=== PATIENT | female | born 1965 | race Caucasian/White ===

== ENCOUNTER 2016-09-27 06:15 | Inpatient (IN) | payer MEDICAID ==
--- NOTE | 2016-09-27 06:22 | ED Physician Chart ---
Chief Complaint/HPI - Patient Information Date Seen:: 09/27/16 Time Seen:: 06:18 Chief Complaint:: head pain History of Present Illness:: 50-year-old female, history of intellectual disability, complains of acute, constant, mild to moderate, aching, left temporal headache that started about 10 minutes prior to arrival to the ER she suffered a mechanical fall. Has associated laceration to the left lateral eyebrow. Also has some slight neck pain as well. Allergies:: Allergies Allergy/AdvReac Type Severity Reaction Status Date / Time azithromycin Allergy Verified 06/06/16 04:43 sea food Allergy Uncoded 06/06/16 04:43 Historian:: Patient Review:: Nurse's Note Reviewed Review of Systems - Review of Systems Other: Complete system review otherwise unremarkable except as noted in HPI. Past Medical History - Past Medical History Past Medical History: Other (intellectual disability) Family History: None Social History: Non Smoker, No Alcohol, No Drug Use, Other (lives with family) Family Medical History - Family Member Uncle History Unknown: Yes Father Other Medical History: PANCREATIC CA Physical Exam - Physical Examination Other:: INITIAL VITAL SIGNS: Reviewed by me GENERAL: Alert and interactive. No acute distress HEAD: Head is normocephalic there is a 3 cm laceration to the right lateral eyebrow area EYES: EOMI. . No scleral icterus. No conjunctival injection ENT: Moist mucous membranes. NECK: Supple. No masses. Full range of motion RESPIRATORY: No tachypnea. Clear breath sounds bilaterally. No wheezing, rales, or rhonchi CV: Regular rate and rhythm. No murmurs, rubs, or gallops ABDOMEN: Soft, non-distended, non-tender. No guarding. No rebound. No masses. EXTREMITIES: No deformity. No cyanosis. No edema. SKIN: Warm and dry. No obvious rashes. NEUROLOGIC: Alert and oriented. Face is symmetric. Speech is normal. Moves all extremities equally. Motor and sensory distally intact. ED Septic Shock - . Is Septic Shock (SBP<90, OR Lactate>4 mmol\L) present?: No Reassessment (Disposition) - Reassessment Reassessment:: Patient will be handed over to Dr. Morgan at change of shift. CT results pending. Final disposition to be determined. Reassessment Condition:: Improved - Diagnosis Diagnosis:: Closed head injury Laceration to left eyebrow Cervical strain Mechanical fall - Patient Disposition Discharge/Transfer:: Home
[2016-09-27] MEDS ORDERED: Sodium Chloride 0.9% 1,000 ML IV ONE (07:26)
[2016-09-27 08:29] LABS: % BASOPHILS 1.4 % (0.0-2.0); % EOSINOPHILS 0.8 % (0.0-5.0); % LYMPHOCYTES 16.2 % (20.0-50.0); % MONOCYTES 5.9 % (2.0-10.0); % NEUTROPHILS 75.7 % (40.0-80.0); HEMATOCRIT 40.9 % (35.0-45.0); HEMOGLOBIN 13.6 gm/dL (11.7-15.5); MEAN CELL VOLUME 89.6 fl (81-100); MEAN CORPUSCULAR HEMOGLOBIN 29.8 pg (27.0-31.0); MEAN CORPUSCULAR HGB CONC 33.2 pg (28.0-36.0); MEAN PLATELET VOLUME 8.1 fl; NEUTROPHILE ABSOLUTE 6.7 Th/cmm (1.8-8.0); PLATELET COUNT 268 Th/cmm (150-400); RED BLOOD COUNT 4.56 Mil/cmm (3.80-5.10); RED CELL DISTRIBUTION WIDTH 12.3 % (11.5-20.0); WHITE BLOOD COUNT 8.8 Th/cmm (4.8-10.8)
[2016-09-27 08:41] LABS: ALB/GLOB RATIO 1.2 (1.0-1.8); ALKALINE PHOSPHATASE 64 U/L (34-104); ANION GAP 5.9 (7.0-16.0); BILIRUBIN,TOTAL 0.4 mg/dL (0.3-1.0); BUN - UREA NITROGEN 18 mg/dL (7-25); CALCIUM SERUM 9.8 mg/dL (8.6-10.3); CARBON DIOXIDE 29.8 mEq/L (21.0-31.0); CHLORIDE 105 mEq/L (98-107); GLUCOSE 102 mg/dL (70-105); POTASSIUM SERUM 4.7 mEq/L (3.5-5.1); SGOT 16 U/L (13-39); SGPT/ALT 13 U/L (7-52); SODIUM SERUM 136 mEq/L (136-145)
--- NOTE | 2016-09-27 09:03 | Diagnostic Imaging Report ---
Head CT without intravenous contrast Indication: Trauma Comparison: Head CT on 06/05/2016 and MRI brain on 06/06/2016 Technique: Axial images were obtained from the vertex to the skull base without IV contrast. Coronal reconstructions were made. Total DLP: 588, CTDI33 FINDINGS: Images of the brain obtained without contrast demonstrate no acute hemorrhage. No mass lesions identified. The ventricles and basal cisterns are patent. The dee-white matter differentiation is preserved. There is no mass effect or midline shift. Atherosclerosis is noted. No skull fractures identified. No soft tissue swelling. The paranasal sinuses are clear. IMPRESSION: No acute intracranial abnormality. Atherosclerotic vascular disease.
--- NOTE | 2016-09-27 09:08 | Diagnostic Imaging Report ---
CT maxillofacial bones without IV contrast HISTORY: Trauma COMPARISON: Head CT the same day Technique: Axial images of the paranasal sinuses were obtained without IV contrast. Reconstructions were made. total DLP: 378, CTDI19 Findings: Images of the maxillofacial bones obtained with contrast demonstrate soft tissue injury with small pockets of gas along the right lateral orbital region. There is lucency seen along the lateral wall of the right orbit likely a nutrient vessel. A nondisplaced fracture is less likely. The bilateral orbital floors are intact. The globes and bilateral intraconal compartments are intact. There is mucosal thickening of the paranasal sinuses. No air-fluid levels identified. The bilateral TMJ joints are intact. There may have been an old nondisplaced fracture of the right zygomatic arch. There is mild rightward deviation of nasal septum. IMPRESSION: Mild soft tissue swelling and soft tissue injury with small pocket of gas along the right lateral orbital region. There is lucency seen along the lateral wall of the right orbit. This likely represents a nutrient channel. A nondisplaced fracture would be considered less likely. Possible old nondisplaced fracture of the right zygomatic arch.
--- NOTE | 2016-09-27 09:13 | Diagnostic Imaging Report ---
CT cervical spine without IV contrast HISTORY: Trauma COMPARISON: None Technique: Axial images were obtained from the skull base to the upper thoracic spine without IV contrast. Multiplanar reconstructions were made. Total DLP: 662, CTDI29 FINDINGS: Images of the cervical spine obtained without contrast demonstrate no evidence of an acute fracture or subluxation. Degenerative changes are seen greatest at C5/C6 with 4 mm posterior disc osteophyte spur asymmetric to the right at C5/C6 causing moderate spinal canal narrowing and moderate rightward neural foraminal narrowing. There is also 3 to 4 mm posterior disc osteophyte spur at C6/C7 causing mild spinal canal narrowing and mild bilateral neural foraminal narrowing. The lung apices are clear. No prevertebral soft tissue swelling. IMPRESSION: No evidence of an acute fracture or subluxation. Degenerative changes greatest at C5/C6, as detailed above.
--- NOTE | 2016-09-27 09:55 | General Progress Note ---
Subjective - Review of Systems Service Date: 09/27/16 Events since last encounter: additional notes ct cspine no fx ct face/head no bleed. poss hairline fx lateral orbit wall staff has been notified that this pt should be admitted to a telemetry bed...not a floor bed due to abnormal ecg believed to be new t inversions (no old ecg available in our system) Objective - Results Result Diagrams: 09/27/16 08:15 09/27/16 08:15 Recent Labs: Laboratory Last Values WBC 8.8 Th/cmm (4.8-10.8) 09/27/16 08:15 RBC 4.56 Mil/cmm (3.80-5.10) 09/27/16 08:15 Hgb 13.6 gm/dL (11.7-15.5) 09/27/16 08:15 Hct 40.9 % (35.0-45.0) 09/27/16 08:15 MCV 89.6 fl (81-100) 09/27/16 08:15 MCH 29.8 pg (27.0-31.0) 09/27/16 08:15 MCHC Differential 33.2 pg (28.0-36.0) 09/27/16 08:15 RDW 12.3 % (11.5-20.0) 09/27/16 08:15 Plt Count 268 Th/cmm (150-400) 09/27/16 08:15 MPV 8.1 fl 09/27/16 08:15 Neutrophils % 75.7 % (40.0-80.0) 09/27/16 08:15 Lymphocytes % 16.2 % (20.0-50.0) L 09/27/16 08:15 Monocytes % 5.9 % (2.0-10.0) 09/27/16 08:15 Eosinophils % 0.8 % (0.0-5.0) 09/27/16 08:15 Basophils % 1.4 % (0.0-2.0) 09/27/16 08:15 Sodium 136 mEq/L (136-145) 09/27/16 08:15 Potassium 4.7 mEq/L (3.5-5.1) 09/27/16 08:15 Chloride 105 mEq/L (98-107) 09/27/16 08:15 Carbon Dioxide 29.8 mEq/L (21.0-31.0) 09/27/16 08:15 Anion Gap 5.9 (7.0-16.0) L 09/27/16 08:15 BUN 18 mg/dL (7-25) 09/27/16 08:15 Creatinine 1.0 mg/dL (0.6-1.2) 09/27/16 08:15 Est GFR ( Amer) > 60.0 ml/min (>90) 09/27/16 08:15 Est GFR (Non-Af Amer) > 60.0 ml/min 09/27/16 08:15 BUN/Creatinine Ratio 18.0 09/27/16 08:15 Glucose 102 mg/dL (70-105) 09/27/16 08:15 Calcium 9.8 mg/dL (8.6-10.3) 09/27/16 08:15 Total Bilirubin 0.4 mg/dL (0.3-1.0) 09/27/16 08:15 AST 16 U/L (13-39) 09/27/16 08:15 ALT 13 U/L (7-52) 09/27/16 08:15 Alkaline Phosphatase 64 U/L (34-104) 09/27/16 08:15 Creatine Kinase 186 U/L (30-223) 09/27/16 08:15 Troponin I < 0.01 ng/mL (0.01-0.05) L 09/27/16 08:15 Total Protein 7.6 gm/dL (6.0-8.3) 09/27/16 08:15 Albumin 4.1 gm/dL (3.7-5.3) 09/27/16 08:15 Globulin 3.5 gm/dL 09/27/16 08:15 Albumin/Globulin Ratio 1.2 (1.0-1.8) 09/27/16 08:15 - Physical Exam Vitals and I&O: Vital Signs Temp 97.5 F 09/27/16 06:31 Pulse 64 09/27/16 06:31 Resp 18 09/27/16 06:31 BP 106/76 09/27/16 06:31 Pulse Ox 97 09/27/16 06:31 Intake & Output 09/26/16 09/27/16 09/27/16 18:59 06:59 18:59 Weight (lbs) 81.647 kg Active Medications: Current Medications Acetaminophen (Tylenol) 650 mg PO NOW STA Stop: 09/27/16 08:46 Last Admin: 09/27/16 08:50 Dose: 650 mg Sodium Chloride (Nacl 0.9%) 1,000 mls @ 100 mls/hr IV .Q10H ONE Stop: 09/27/16 17:25 Assessment/Plan - Problem List Patient Problems: All Active Problems Abnormal gait (Acute) R26.9 Dizziness (Acute) R42 Fall (Acute) W19.XXXA
[2016-09-27] MEDS ORDERED: Morphine Sulfate 2 mg/mL 1mL Syr IVP PRN (10:53)
[2016-09-27] MEDS ORDERED: Potassium Chloride 20 mEq ER Tab PO PRN (10:53)
--- NOTE | 2016-09-27 13:34 | Diagnostic Imaging Report ---
CHEST X-RAY: AP view INDICATION: Weakness COMPARISON: None FINDINGS: Left basal linear density is seen. No focal consolidation pleural effusions. Heart size is normal. Degenerative changes of the spine are noted. IMPRESSION: Left basal subsegmental atelectasis versus scarring. No focal consolidation identified.
--- NOTE | 2016-09-27 14:18 | History & Physical ---
CHIEF COMPLAINT: Fall. HISTORY OF PRESENT ILLNESS: The patient is a pleasant 50-year-old female. She has history of schizophrenia and bipolar disorder. She walks several miles everyday according to the daughter. She has history of drug abuse in the past as well. She was missing for about 10 years. She was found living in [facility] and then she was ultimately found about a year and a half ago, now she lives with one of her daughters. The patient was getting out of bed and she fell down, she hit her right side of the head. She had a laceration and came to the ER. She apparently lost consciousness according to the daughter. She overall was out for about 1 minute. PAST MEDICAL HISTORY: Significant for schizophrenia and bipolar disorder. SOCIAL HISTORY: She has a history of polysubstance abuse in the past. Currently, she does not do any drug. She used to smoke, but quit about 5 years ago. She smokes about 10 cigarettes a day for about 20 years. FAMILY HISTORY: Noncontributory. ALLERGIES: SHE IS ALLERGIC TO AZITHROMYCIN, BUT SHE IS NOT SURE OF THE REACTION. SURGICAL HISTORY: She had uterine prolapse surgery. Other than that, denies any surgeries. HOME MEDICATIONS: Reviewed and reconciled. REVIEW OF SYSTEMS: GENERAL: Positive for recent fatigue, but no fevers or chills. HEENT: Positive for head trauma, laceration on the right side of the forehead. No change in vision, taste, hearing, or smell. NEUROLOGIC: Positive for recent syncope. NECK: No recent tracheal deviation. CARDIOVASCULAR: Denies any chest pain or palpitation. ABDOMEN: No recent pain and distention. GASTROINTESTINAL: Denies any nausea, vomiting or diarrhea. SKIN: No recent rashes. PSYCHIATRIC: She has history of mood disorder, bipolar disorder, schizophrenia. EXTREMITIES: No recent edema. MUSCULOSKELETAL: No DJD. Positive for recent fall, but no history of any fractures. RESPIRATORY: No history of COPD or asthma. GENITOURINARY: Denies any increased frequency or pyuria or dysuria. PHYSICAL EXAMINATION: VITAL SIGNS: Temperature 97.5 degrees, heart rate is 64, respirations 16, blood pressure 105/67. Currently, no pain. GENERAL: No acute distress, awake. NECK: Trachea is midline. CARDIOVASCULAR: Regular rate and rhythm. SKIN: No rashes. ____ of the patient's right-sided forehead laceration has wound dressing intact. There is no active bleeding, but there is wound about 1 cm wide. EXTREMITIES: No edema. PSYCHIATRIC: Currently, she is stable, no psychosis or hallucinations. RESPIRATORY: Clear. MUSCULOSKELETAL: She has 5+ muscle strength in upper and lower extremities. LABORATORY DATA: C-spine CT in the ER was done, which shows no evidence of acute fractures or subluxation. Head CT is essentially negative. Maxillofacial CT was done in the ER and does not show any acute fracture. There is mild tissue swallowing and soft tissue injury on the right orbital region. White count is 8.8, hemoglobin is 13.6, platelet count is 268,000. Sodium 136, potassium 4.7, chloride 105, bicarbonate 29.8, BUN 18, anion gap is 5.9. Troponin is less than 0.01. Glucose is 102. UA is pending. ASSESSMENT: 1. Vasovagal syncope. 2. Status post mechanical fall. 3. Closed head injury. 4. Right forehead laceration 5. Schizophrenia. 6. Cardiac arrhythmia. PLAN: The patient is being monitored in telemetry because of the cardiac arrhythmia. There were some T-wave changes on the EKG done in the ER. Cardiology has been consulted. I am avoiding anticoagulants right now because of her laceration and recent closed head injury. I will start her on bilateral SCDs. Follow up on the UA as well. CT of the head is negative. I will do bilateral carotid ultrasound as well. Continue fall precautions and PT evaluation will be ordered. JOB# [id number]
[2016-09-27 17:12] VITALS: BP 98/59
[2016-09-27] MEDS: Sodium Chloride 0.9% 1,000 ML IV SCH (18:57)
--- NOTE | 2016-09-28 07:00 | Admit Criteria Form ---
Admit Criteria Forms - Admit Criteria Diagnosis: TELEMETRY CARE Telemetry Admission Guidelines (Place 'X' for any and all applicable criteria): Admission to telemetry [A] may be indicated for ANY ONE of the following(1)(2)(3 )(4)(5): [ ]I. Cardiac disease, including ANY ONE of the following (9)(10)(11)(12)(13 ): [ ]a) Postacute MD [ ]b) Low-risk patients with ST-segment elevation MD who have undergone successful percutaneous coronary intervention [ ]c) Unstable angina [ ]d) Suspected MD (until it is ruled out) [ ]e) Post cardiac surgery (first 48 to 72 hours unless complications occur) [ ]f) Acute arrhythmias (including significant tachycardia or bradycardia) [B] [ ]g) Firing of an implantable cardioverter defibrillator [C] [ ]h) Suspected pacemaker or implantable cardioverter defibrillator malfunction (10) [ ]i) New administration or adjustment of an antiarrhythmic drug [D ] [ ]j) Child admitted for acute congestive heart failure [ ]j) Long QT syndrome [ ]k) Advanced heart block (eg, second-degree Mobitz type II, third- degree heart block) [ ]l) Acute myocarditis or pericarditis [ ]m) Short-term (ambulatory or inpatient) monitoring after a cardiac procedure as indicated by ANY ONE of the following [E]: [ ]i) Electrophysiologic studies [ ]ii) Percutaneous coronary intervention with stent placement [ ]iii) Pacemaker placement with cardiac conduction defect [ ]iv) Implantable cardiac defibrillator placement [ ]II. Drug overdose or poisoning with substance that causes arrhythmias or QT prolongation (eg, phenothiazines, sympathomimetic agents, cyclic antidepressants, digitalis, antiarrhythmic drugs)(15) [ ]III. Short-term (ambulatory or inpatient) monitoring after therapeutic or diagnostic procedure requiring conscious sedation or anesthesia (eg, endoscopy, elective cardioversion) [ ]IV. Acute cerebrovascular even[F](18) [ ]V. Massive blood transfusion (eg, at least 10 units of packed red blood cells in 24 hours) [ ]. Variceal bleeding after endoscopy, sclerotherapy, or IV vasopressin [ ]VII. Uncorrected electrolyte abnormalities associated with an increased risk of dangerous arrhythmia [G]; examples include [ ]a) Hyperkalemia with attributable ECG changes [ ]b) Potassium greater than 6.5 mmol/L (mEq/L) in a patient without history of chronic renal disease [ ]c) Prolonged QT attributed to hypokalemia, hypomagnesemia, or hypocalcemia [X ]VIII.Unexplained syncope or other neurologic event suspected of being due to arrhythmia due to a finding that increases risk; examples include(19)(20)(21): [X ]a) High-risk ECG findings (eg, bifascicular block, bradycardia, abnormal QT interval, ventricular pre- excitation) [ ]b) History of previous syncope due to arrhythmia [ ]c) Abnormal ventricular function (eg, reduced ejection fraction ) [ ]d) Exertional or supine syncope [X ]e) Concerning syncope characteristics (eg, sudden loss of consciousness without prodrome) [ ]f) Family history of sudden [ ]g) Use of arrhythmogenic medication [ ]h) Suspected cardiac ischemia [ ]i) Known channelopathy (eg, long QT syndrome, Brugada syndrome, or catecholaminergic paroxysmal ventricular tachycardia) [ ]j) Known structural heart disease (eg, hypertrophic cardiomyopathy , severe valvular disease) [ ]k) Palpitations preceding syncope The original [employer] content created by [employer] has been revised. The portions of the content which have been revised are identified through the use of italic text or in bold, and [email or web address] has neither reviewed nor approved the modified material. All other unmodified content is copyright [employer]. Please see references footnoted in the original [employer] edition 2016 Admit Criteria Met?: Yes
--- NOTE | 2016-09-28 07:41 | Consultation ---
The patient of Dr. Rudd. HISTORY AND PHYSICAL: This is a 50-year-old female patient who was trying to get out of bed, had syncopal episode. The patient had a fall, laceration on the right forehead. Following this, the patient came to the Emergency Room. The patient did not complain of chest pain or palpitation prior to syncope. No complaint of seizure disorder. PAST MEDICAL HISTORY: Schizophrenia bipolar, polysubstance abuse, and nicotine dependence. FAMILY HISTORY: Unremarkable. SOCIAL HISTORY: The patient has a history of smoking, polysubstance abuse. ALLERGIES: The patient is allergic to . FAMILY HISTORY: Unremarkable. PHYSICAL EXAMINATION: VITAL SIGNS: Blood pressure 130/80, pulse 80, and respirations 20. HEAD: Normocephalic. No lumps or bumps. EYES: Pupils are equal and reactive to light. Fundi show AV nicking, sclerae white, and conjunctivae pink. NECK: Carotid 2+. Normal upstroke. JVD flat. Thyroid not palpable. Lymph nodes not palpable. CHEST: Shows increased AP diameter. No kyphosis or scoliosis. LUNGS: Bilateral bronchovesicular breath sounds. HEART: PMI fifth intercostal space with lateral to midclavicular line. S1, S2. No S3, S4. Systolic murmur, grade 2/6, lower left sternal border without radiation. RECTAL: Soft. Liver and spleen not palpable. No organomegaly. Bowel sounds active. NEUROLOGIC: Unremarkable. EXTREMITIES: Peripheral pulses 2+. No pedal edema. CLINICAL IMPRESSION: 1. Syncope. 2. Laceration on the forehead. 3. Schizophrenia bipolar. 4. Nicotine dependence. 5. Polysubstance abuse. PLAN: We will get carotid duplex study, echocardiogram, and troponin level. EKG showed nonspecific T-wave changes. JOB# [id number]
[2016-09-28] MEDS: Sodium Chloride 0.9% 1,000 ML IV SCH ×2 (10:26→21:58)
--- NOTE | 2016-09-28 14:32 | Diagnostic Imaging Report ---
Bilateral carotid Doppler ultrasound exam HISTORY: Syncope Sonographic sector images were obtained through the carotid bifurcation regions bilaterally. Associated Doppler data was obtained. The exam of the right side is free of any significant focal atherosclerotic plaque. Antegrade vertebral artery flow. Velocities and flow ratios are normal (ICC/CCA equals 0.76). The left side is also free of any significant focal plaque. Antegrade vertebral artery flow. Velocities and flow ratios are normal (ICC/CCA equals 0.74). IMPRESSION: 1. No evidence of hemodynamically significant atherosclerotic vascular disease
--- NOTE | 2016-09-29 20:33 | Discharge Summary ---
CAUSE OF ADMISSION: The patient is a pleasant 50-year-old female. She has history of schizophrenia and bipolar disorder. She walks several miles according to the daughter and that is on a daily basis. She has history of drug abuse in the past as well. She was missing for about 10 years. She was found living in [facility] and she was ultimately found about a year and a half ago and now she lives with one of her daughters. The patient was getting out of bed and she fell down and hit the right side of the head. She had a laceration and came to the ER. Apparently, she lost consciousness. ADMITTING DIAGNOSES: 1. Vasovagal syncope. 2. Status post mechanical fall. 3. Closed head injury. 4. Right forehead laceration. 5. Schizophrenia. 6. Cardiac arrhythmia. 7. History of polysubstance abuse. DISCHARGE DIAGNOSES: As above. SUMMARY OF HOSPITAL COURSE: The patient was admitted to telemetry. Full work up was done including maxillofacial CT by ER. CT of the head was negative. Bilateral carotid ultrasound was negative. Echo was done by Cardiology. Troponins were negative. There were some nonspecific EKG changes. Cardiology saw the patient. She is stable to be discharged. Her laceration is closed. There is some scar tissue as well. She feels well that she wants to go home. PHYSICAL EXAMINATION: VITAL SIGNS: Temperature is 98.8 degrees, heart rate is 63, respirations 18 and blood pressure 138/89. No pain. GENERAL: No acute distress, awake and pleasant. HEAD: Right-sided laceration. Wound dressing is intact. CARDIOVASCULAR: Regular rhythm. ABDOMEN: Nontender and nondistended. SKIN: No rash. EXTREMITIES: No edema. PSYCHIATRIC: She is stable, no psychosis or hallucinations. LABORATORY DATA: No new labs as of today. IMAGING STUDIES: The patient's duplex ultrasound is negative. Chest x-ray is negative. Maxillofacial and head CT is essentially negative. C-spine CT was done in the ER, which does not show any acute abnormalities. PROGNOSIS: Fair. ACTIVITY: As tolerated. DISPOSITION: The patient is being discharged home. MEDICATIONS: No new medications. FOLLOWUP: She is to follow with her primary care doctor within one week of discharge. CONSULTS: Dr. Marco Brand for cardiology. PROCEDURES: None. She did have an echo done; the results are pending. [facility]# [id number]
--- NOTE | 2016-09-29 21:03 | Cardiology ---
The patient of Dr. Rudd. M-MODE ECHOCARDIOGRAM: Mitral valve: Anterior leaflet of the mitral valve shows normal excursion, EF velocity. Posterior leaflet of the mitral valve shows normal excursion. Left ventricular posterior wall shows increased thickness, normal excursion. Interventricular septum shows increased thickness, normal excursion, hypertrophy of the left ventricle, ejection fraction 55%. Left atrium enlarged, 4.1 cm. Aortic root shows normal dimension, normal excursion of aortic leaflets. CONCLUSION: Hypertrophy of the left ventricle, left atrial enlargement and ejection fraction 55%. 2D ECHO: Long axis view showed normal sized left ventricle with hypertrophy of the left ventricle. Left atrium enlarged. Aortic root shows normal dimension, normal excursion of aortic leaflets. Short axis view of mitral valve normal. Short axis view of aortic valve normal. Apical four chamber view showed normal sized left ventricle with hypertrophy of the left ventricle. Left atrium enlarged. Right ventricular cavity, right atrium normal and no pericardial effusion. CONCLUSION: Hypertrophy of the left ventricle, left atrial enlargement, ejection fraction 55%. Doppler study shows prominent A wave consistent with poor compliance of left ventricle, trace mitral regurgitation. JOB# [id number]
== END 2016-09-29 18:45 | disposition home or self-care (01) | DRG 48 ==
LOC: ER 06:15 → TELE 11:23
PROVIDERS: ADMIT General Practice; ATTEND General Practice
PROC: 0HQ1XZZ Repair Face Skin, External Approach (ICD-10-PCS; principal; 2016-09-27)
DX: G90.8 Other disorders of autonomic nervous system (principal); F20.9 Schizophrenia, unspecified; S01.81XA Laceration without foreign body of other part of head, initial encounter; W06.XXXA Fall from bed, initial encounter; F31.9 Bipolar disorder, unspecified; I49.9 Cardiac arrhythmia, unspecified; F17.211 Nicotine dependence, cigarettes, in remission; F19.10 Other psychoactive substance abuse, uncomplicated; Z91.013 Allergy to seafood; Z98.890 Other specified postprocedural states; Y93.89 Activity, other specified; Y92.89 Other specified places as the place of occurrence of the external cause; Y99.8 Other external cause status; Z88.1 Allergy status to other antibiotic agents
CPT/HCPCS: 36415-UA; 70450-TC; 70486-TC; 71010-TC; 72125-TC; 80053-TC; 82270-TC; 82550-TC; 83036-90; 84484-TC; 85025-TC; 93005; 93880-TC; 96374; 96375; J2060; J7030; Z7610

== ENCOUNTER 2018-06-26 22:37 | Emergency (ER) | payer MEDICAID ==
--- NOTE | 2018-06-26 23:51 | ED Physician Chart ---
ED Chief Complaint/HPI - Patient Information Date Seen:: 06/26/18 Time Seen:: 22:40 Chief Complaint:: Left Foot Pain History of Present Illness:: onset x 3 days of left foot pain, erythema, and swelling after an accidental fall type injury 3 days ago; no report of LOC, ALOC, AMS, decreased activity, visual or gait changes, H/As, neck pain, weakness, dizziness, paresthesias, vertigo, C/P, SOB, Abd. pain, A/N/V/D/C, fever, chills, or urinary s/s; pt is 2 years post-menopausal; pt denies ; pt's last tetanus shot: < 5 years; UTD Allergies:: Allergies Allergy/AdvReac Type Severity Reaction Status Date / Time azithromycin Allergy Verified 06/06/16 04:43 sea food Allergy Uncoded 06/06/16 04:43 Vitals:: Vital Signs - 8 hr 06/26/18 06/26/18 22:40 23:43 Temp 97.4 F 97.5 F HR 77 84 RR 16 18 BP 112/66 144/67 O2 Sat % 100 97 Historian:: Patient Review:: Nurse's Note Reviewed, Old Chart Reviewed ED Review of Systems - Review of Systems General/Constitutional: No fever, No chills, No weight loss, No weakness, No diaphoresis, No edema, No loss of appetite Skin: No skin lesions, No rash, No bruising Head: No headache, No light-headedness Eyes: No loss of vision, No pain, No diplopia ENT: No earache, No nasal drainage, No sore throat, No tinnitus Neck: No neck pain, No swelling, No thyromegaly, No stiffness, No mass noted Cardio Vascular: No chest pain, No palpitations, No PND, No orthopnea, No edema Pulmonary: No SOB, No cough, No sputum, No wheezing GI: No nausea, No vomiting, No diarrhea, No pain, No melena, No hematochezia, No constipation, No hematemesis G/U: No dysuria, No frequency, No hematuria, No nacturia [employer] Specialist: No vaginal discharge, No abnormal vaginal bleed, No contraction Musculoskeletal: No bone or joint pain, No back pain, No muscle pain Endocrine: No polyuria, No polydipsia Psychiatric: Prior psych history, No depression, Anxiety, No suicidal ideation, No homicidal ideation, No auditory hallucination, No visual hallucination Hematopoietic: No bruising, No lymphadenopathy Allergic/Immuno: No urticaria, No angioedema Neurological: No syncope, No focal symptoms, No weakness, No paresthesia, No headache, No seizure, Dizziness, No confusion, Vertigo ED Past Medical History - Past Medical History Obtainable: Yes Past Medical History: HTN Family History: HTN Social History: Non Smoker, No Alcohol, No Drug Use, Single Surgical History: None Psychiatricy History: Other (Anxiety) Medication: Reviewed Family Medical History - Family Member Uncle History Unknown: Yes Father History Unknown: Yes Mother Hx Family Diabetes: Yes Sister Living Status: Still Living ED Physical Exam - Physical Examination General/Constitutional: Awake, Well-developed, well-nourished, Alert, No distress, GCS 15, Non-toxic appearing, Ambulatory Other Head comments:: Middle Parietal Scalp Contusion Eyes: Lids, conjuctiva normal, PERRL, EOMI Other Eyes comments:: PERRLA; Fundi: benign; EOMs: WNL Skin: Nl inspection, No rash, No skin lesions, No ecchymosis, Well hydrated, No lymphadenopathy ENMT: External ears, nose nl, TM canals nl, Nasal exam nl, Lips, teeth, gums nl , Oropharynx nl, Tonsils nl Other ENMT comments:: TMJs: WNL Neck: Nontender, Full ROM w/o pain, No JVD, No nuchal rigidity, No bruit, No mass, No stridor Other Neck comments:: supple; no meningeal signs; no cervical tenderness; no bruits Respiratory: Nl effort/Exclusion, Clear to Auscultation, No Wheeze/Rhonchi/Rales Cardio Vascular: RRR, No murmur, gallop, rubs, NL S1 S2, Carotid/Femoral/Distal pulses equal bilaterally GI: No tenderness/rebounding/guarding, No organomegaly, No hernia, Normal BS's, Nondistended, No mass/bruits, No McBurney tenderness, Rectum exam nl Other GI comments:: no pulsatile masses : No CVA tenderness Extremities: No tenderness or effusion, Full ROM, normal strength in all extremities, No edema, Normal digits & nails Other Extremities comments:: Left Foot: + Cellulitis; + dorsal medial tenderness; no loss of ROMs; full active ROMs; no septic joints; no ligament instability; Gait: WNL; good motor, tendon, and sensory functions; good NV functions Neuro/Psych: Alert/oriented, DTR's symmetric, Normal sensory exam, Normal motor strength, Judgement/insight normal, Mood normal, Normal gait, No focal deficits Other Neuro/Psych comments:: no focal signs Misc: Normal back, No paraspinal tenderness ED Labs/Radiology/EKG Results - Radiology Results Comments:: + 2nd MT Fracture of Left Foot ED Assessment Splint Care: Splint applied Post Procedure/Splint Exam: No Active Bleeding, Full Range of Motion, Neuro/ Vascular Exam Comments:: good NV functions; Crutches: deferred by pt ED Septic Shock - . Is Septic Shock (SBP<90, OR Lactate>4 mmol\L) present?: No - <6hrs of presentation: Vital Signs: Vital Signs - 8 hr 06/26/18 06/26/18 22:40 23:43 Temp 97.4 F 97.5 F HR 77 84 RR 16 18 BP 112/66 144/67 O2 Sat % 100 97 ED Reassessment (Disposition) - Reassessment Reassessment:: pt is asymptomatic upon discharge Reassessment Condition:: Improved - Diagnosis Diagnosis:: Dx: Left Foot Pain; Left Foot Injury; Scalp Contusion; Head Injury; Left Foot Fracture; Sprains and Strains; Left Ankle Sprain and Strain; Left Foot Cellulitis; - Aftercare/Follow up Instructions Aftercare/Follow-Up Instructions:: Counseled pt regarding lab results/diagnosis & need follow up, Refer to Discharge Instructions, Counseled pt & family regarding lab results/diagnosis & need follow up Medication Prescribed:: Rx: Keflex 500mg po qid x 10 days; Warm Compresses; Orthopedic Cast Bootv Shoe to Left Foot - Patient Disposition Discharge/Transfer:: Home Condition at Disposition:: Stable, Improved (RTER prn if existing s/s reoccur and/or get worse and/or any other new s/s occur; ACIs given for all above Dx; X- Rays Instructions; refer to Orthopedist/Neurologist/[employer]/Psychiatrist/ Work Station Support Specialist JOSEE; F/U with PMD in one day or prn; RTER prn if concerned)
--- NOTE | 2018-06-27 08:55 | Diagnostic Imaging Report ---
Left ankle 3 views Indication: Trauma Comparison: Left foot x-rays the same day Findings: No evidence of an acute fracture or dislocation. No significant focal soft tissue swelling. Impression: No evidence of an acute fracture. In the setting of trauma, if clinical symptoms persist and there is continued concern for an occult fracture, follow up exams in 5-7 days is suggested.
--- NOTE | 2018-06-27 08:57 | Diagnostic Imaging Report ---
Left foot 3 views Indication: Trauma Comparison: none Findings: Mild to moderate degenerative changes are seen greatest at the first interphalangeal joint. Subchondral cystic changes of the head of the third metatarsal is noted. There is oblique fracture of the proximal second metatarsal which may extend to the proximal articular surface with mild displacement. Soft tissue swelling of the dorsal foot is noted. There may be osteopenia. Impression: Oblique fracture of the proximal second metatarsal which may extend to the proximal articular surface with mild displacement. Clinical correlation and follow-up is recommended Mild surrounding soft tissue swelling.
== END 2018-06-27 00:27 | disposition home or self-care (01) ==
LOC: ER 22:37
DX: S92.322A Displaced fracture of second metatarsal bone, left foot, initial encounter for closed fracture (principal); S00.03XA Contusion of scalp, initial encounter; S93.402A Sprain of unspecified ligament of left ankle, initial encounter; L03.116 Cellulitis of left lower limb; I10 Essential (primary) hypertension; Z88.1 Allergy status to other antibiotic agents; Z91.013 Allergy to seafood; W19.XXXA Unspecified fall, initial encounter; Y93.89 Activity, other specified; Y92.89 Other specified places as the place of occurrence of the external cause; Y99.8 Other external cause status
CPT/HCPCS: 73610-TC; 73630-TC-LT; Z7502